=== PATIENT | male | born 1985 | race African-American/Black ===

== ENCOUNTER 2023-05-11 11:35 | Emergency (ER) | payer SELFPAY ==
[~2023-05-11] VITALS: Ht 175.3 cm; Wt 84.1 kg
[~2023-05-11 11:35] MED LIST: FLEXERIL 1010 MG/TAB PO; MEDROL 4MG DOSPA4 MG PO; NORCO 325 MG-51 TAB PO
[2023-05-11] MEDS ORDERED: AMOXICILLIN 8751 TAB PO (13:05)
[2023-05-11] MEDS ORDERED: ROXICODONE 55 MG/TAB PO (13:05)
[2023-05-11 13:24] VITALS: BP 115/64; PULSE 62; TEMP 98
== END 2023-05-11 13:24 | disposition home or self-care (01) ==
LOC: COL.ER 11:35
DX: S02.5XXA Fracture of tooth (traumatic), initial encounter for closed fracture (principal); X58.XXXA Exposure to other specified factors, initial encounter